=== PATIENT | male | born 1955 | race Caucasian/White ===

== ENCOUNTER 2024-06-07 04:38 | Inpatient (IN) | payer OTHER, SELFPAY ==
[2024-06-07] VITALS (8 sets, daily range): BP systolic 93–155; BP diastolic 52–70; PULSE 73–135; RESP 12–18; TEMP 36.4–37.1; O2SAT 94–99; BMI 22.9; BMI 22.1
--- NOTE | ~2024-06-07 | IR_ITS ---
Fluoroscopic nephrostomy tube replacement History: Metastatic bladder cancer. Dislodged left nephrostomy tube. Procedure: Patient was informed and consented to the procedure. The patient's left back was prepped and draped in routine sterile fashion. A KMP catheter was inserted through the catheter entry site. A contrast injection demonstrated a tract communicating with the renal pelvis. A Glidewire was advanced through the catheter and manipulated into the renal pelvis. The Glidewire was exchanged for a stiff Amplatz wire. [id number], a new 8 Tristanian nephrostomy tube advanced and coiled in the renal pelvis. A subsequent contrast injection demonstrated proper positioning of the tube. The drain was then sutured to the skin with a 3-0 nylon suture. A sterile dressing was applied. There were no immediate complications. Total fluoroscopy time: 2.0 minutes This procedure was performed by Nish Navarrete PA-C, and directly supervised by Dr. Salazar. IR/IR nephrostomy Impression: Successful replacement of left nephrostomy tube. Electronically signed by: Moy Salazar MD 06/11/2024 02:10 PM EDT
--- NOTE | ~2024-06-07 | CT_ITS ---
EXAMINATION: CT ABDOMEN AND PELVIS WITHOUT CONTRAST CLINICAL INFORMATION: Nephrostomy tube pulled out COMPARISON: None available. TECHNIQUE: Multidetector volumetric imaging was performed from the superior aspect of the liver through the pubic symphysis. Sagittal and coronal reformatted images were obtained on the technologist's workstation. This CT examination was performed using dose optimization techniques as appropriate, variously including the following: *Automated exposure control *Adjustment of mA and/or kV according to patient size (this includes techniques or standardized protocols for targeted exams where dose is matched to indication/reason for exam; i.e. extremities or head) *Use of iterative reconstruction technique DLP: 786 mGy-cm FINDINGS: LUNG BASES: Large pericardial effusion. Coronary artery and valvular calcifications. Small bilateral pleural effusions with subjacent atelectasis. No pneumothorax. LIVER, GALLBLADDER, AND BILIARY TREE: The liver is normal in size, shape, and attenuation. No focal hepatic lesion or biliary ductal dilatation is present. The gallbladder is unremarkable with no evidence of radiopaque gallstones, gallbladder wall thickening, or obvious pericholecystic inflammatory changes. PANCREAS: Punctate calcifications involving the splenic body potentially representing sequela of remote pancreatitis. SPLEEN: Potential hypodense focus within the posterior medial aspect of the spleen measuring 2.1 cm, nonspecific. ADRENAL GLANDS: Unremarkable. KIDNEYS AND URETERS: Right sided percutaneous nephrostomy catheter is noted with the pigtail coiled within the right renal lower pole calyx . No right-sided nephrolithiasis or hydronephrosis. Right-sided hydroureter. Moderate left-sided hydroureteronephrosis without obstructing calculus noted. Left-sided 5 mm lower pleural-parenchymal calculus noted. BLADDER: Though the urinary bladder is decompressed there is prominent wall thickening. GASTROINTESTINAL TRACT: Fecal loading throughout the colon. The small and large bowel are unremarkable. The appendix is not definitively visualized. ABDOMINAL WALL: No significant hernia is appreciated. Anasarca. PERITONEUM: Trace ascites noted LYMPH NODES: No enlarged lymph nodes per size criteria. VASCULAR: Abdominal aorta is nonaneurysmal. PELVIC VISCERA: Prostate measures up to 3.2 cm. OSSEOUS STRUCTURES: Multifocal vertebral body and pelvic sclerotic foci are noted suggesting metastatic disease. Multilevel degenerative changes of the thoracolumbar and lumbosacral spine. CT/CT abdomen pelvis wo IV con IMPRESSION: 1. Right sided percutaneous nephrostomy catheter is noted with the pigtail coiled within the right renal lower pole calyx. No right-sided nephrolithiasis or hydronephrosis. Right-sided hydroureter 2. Moderate left-sided hydroureteronephrosis without obstructing calculus noted. Left-sided 5 mm lower pleural-parenchymal calculus noted. 3. Though the urinary bladder is decompressed there is prominent wall thickening. 4. Large pericardial effusion. 5. Small bilateral pleural effusions with subjacent atelectasis. 6. Potential hypodense focus within the posterior medial aspect of the spleen measuring 2.1 cm, nonspecific. 7. Multifocal vertebral body and pelvic sclerotic foci are noted suggesting metastatic disease. Fleischner guidelines were followed. Electronically signed by: Paula Madera MD 06/07/2024 07:40 AM EDT
--- NOTE | 2024-06-07 05:18 | ED.MALEGU ---
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 and brain on hospice care with nephrostomy tube just discharged from [facility] on 06/04/24 patient is only for comfort measures taking the pain medications and has bilateral nephrostomy tube, last night patient was restless the gave him Ativan and accidentally patient has pulled out the left nephrostomy tube which was placed about a month ago , right nephrostomy tube still draining urine patient came here for replacement of nephrostomy tube spoke with patient's obgyn specialist dolores heller who does not want any lab workup just want comfort measures and replacement of nephrostomy tube according to patient's left nephrostomy tube drains well than the right one Related Data Allergies Allergy/AdvReac Type Severity Reaction Status Date / Time No Known Allergies Allergy Verified 06/07/24 04:55 Review of Systems Review of Systems: Yes Unobtainable due to mental status PMFSH Social History Social History Household Members: Spouse Housing: Unknown / Unable to assess Patient Tobacco Use Status: Tobacco use Unknown Physical Exam Vital Signs: Vital Signs: Last Vital Signs Temp 97.9 F 06/08/24 04:00 Pulse 80 06/08/24 04:00 Resp 15 06/08/24 04:00 BP 129/67 06/08/24 04:00 Pulse Ox 97 06/08/24 04:00 O2 Del Method Nasal Cannula 06/08/24 04:00 O2 Flow Rate 2 06/08/24 04:00 BMI result Body Mass Index 22.9 Appearance: Alert. Oriented X1-2. No acute distress. Lethargic falling sleep Eyes: Pallor++ ENT: Pharynx normal. Oral Mucosa moist Neck: Normal inspection. Neck supple. CVS: Normal heart rate and rhythm. Pulses normal. Respiratory: No respiratory distress. Equal air entry bilateral, decreased air entry bilateral Abdomen: Soft and nontender. Bowel sounds are present, no mass palpable, no CVA tenderness right nephrostomy in place with urine drainage+ Skin: Skin warm and dry. Normal skin color. Normal skin turgor. Extremities: + lower extremity edema. No calf tenderness Neuro: Oriented X1-2. Limited lower extremity movements Medications Administered Generic Name Dose Route Start Last Admin Trade Name Freq PRN Reason Stop Dose Admin Methadone HCl 5 mg 06/07/24 21:00 06/08/24 04:45 Methadone Hcl 5 Mg Tablet PO 5 mg Q8H HARLAN Administration Oxycodone HCl 10 mg 06/07/24 10:42 06/08/24 00:00 Oxycodone Hcl Immed Release 5 Mg Tablet PO 10 mg Q3H PRN Administration Pain, Moderate(Pain Scale 4-6) Sodium Chloride 3 ml 06/07/24 16:00 06/07/24 21:10 0.9 % Sodium Chloride Flush 3 Ml Syringe IVFLUSH 3 ml QSHIFT HARLAN Administration Discontinued Medications Generic Name Dose Route Start Last Admin Trade Name Freq PRN Reason Stop Dose Admin Methadone HCl 5 mg 06/07/24 11:00 06/07/24 13:26 Methadone Hcl 5 Mg Tablet PO 5 mg Q8H HARLAN Administration Oxycodone HCl 15 mg 06/07/24 07:45 06/07/24 08:01 Oxycodone Hcl Immed Release 15 Mg Tablet PO 06/07/24 07:46 15 mg ONCE ONE Administration Medical Decision Making Medical Decision Making [facility] Narrative: Patient with bladder cancer with metastasis to bone and brain in the hospice care comes here with dislodged left nephrostomy tube. Discussed with hospital will admit patient to hospitalist service for replacement of left nephrostomy tube by IR and supportive treatment case discussed with patient's does not want any other further testing patient is supposed to on comfort care only Consult Healthcare Provider Management of the patient was discussed with: Hospitalist Independent Interpretation I performed an independent interpretation of an: CT Scan Radiology Impression Discussion of test interpretation with radiology: I have reviewed the radiologist's reading. Radiologist Impression: CT/CT abdomen pelvis wo IV con IMPRESSION: 1. Right sided percutaneous nephrostomy catheter is noted with the pigtail coiled within the right renal lower pole calyx. No right-sided nephrolithiasis or hydronephrosis. Right-sided hydroureter 2. Moderate left-sided hydroureteronephrosis without obstructing calculus noted. Left-sided 5 mm lower pleural-parenchymal calculus noted. 3. Though the urinary bladder is decompressed there is prominent wall thickening. 4. Large pericardial effusion. 5. Small bilateral pleural effusions with subjacent atelectasis. 6. Potential hypodense focus within the posterior medial aspect of the spleen measuring 2.1 cm, nonspecific. 7. Multifocal vertebral body and pelvic sclerotic foci are noted suggesting metastatic disease. Fleischner guidelines were followed. Discharge Plan Discharge Clinical Impression: Nephrostomy tube displaced Patient Disposition: Admitted As Inpatient Interventions: Admission Worksheet (ED) Last Done: 06/07/24 10:03 Discharge Date/Time: 06/07/24 10:39
--- NOTE | 2024-06-07 05:26 | PC.NURSE ---
Pt changed over to hospital attire, rectal temp 96.7, provider spoke to family member, comfort measures only at this time.
--- NOTE | 2024-06-07 05:30 | PC.NURSE ---
pt taken to ct-scan
--- NOTE | 2024-06-07 07:05 | PC.NURSE ---
Pt is alert/oriented. States 4/10 pain to testicles however on exam no outward abrasions or swelling/redness appreciated. Tachy on tele in 130s. Other VS WNL. Dressing to left urostomy site dressing CDI and right nephrostomy draining pink tinged urine. Pt resting comfortably with eyes closed when not spoken to. Awaits CT scan
[2024-06-07] MEDS: oxyCODONE HCl Immed Release 15 MG TABLET PO (08:01)
--- NOTE | 2024-06-07 08:37 | PM.IMHP ---
History of Present Illness Date of Service: 06/07/24 Chief Complaint: Nephrostomy tube dislodged Patient with history of metastatic bladder cancer spreading to bones and brain on hospice care with nephrostomy tube just discharged from [facility] on 06/04/24 patient is only for comfort measures taking the pain medications and has bilateral nephrostomy tube, last night patient was restless the gave him Ativan and accidentally patient has pulled out the left nephrostomy tube which was placed about a month ago , right nephrostomy tube still draining urine patient came here for replacement of nephrostomy tube spoke with patient's vest presser dolores heller who does not want any lab workup just want comfort measures and replacement of nephrostomy tube according to patient's left nephrostomy tube drains well than the right one Review of Systems Review of Systems: Admits to diffuse bony pain Denies chest pain Denies shortness of breath Denies nausea vomiting diarrhea Denies fever chills PMFSH Social History Smoked in Last 30 Days: No Use of substances other than those prescribed or required for medical reasons: No Advance Directives: No Do you have a plan to hurt others: No Plan Meds Allergies Allergy/AdvReac Type Severity Reaction Status Date / Time No Known Allergies Allergy Verified 06/07/24 04:55 Physical Exam Vital Signs and Narrative: Vital Signs: Last Vital Signs Temp 97.6 F 06/07/24 04:52 Pulse 130 H 06/07/24 07:05 Resp 18 06/07/24 07:05 BP 115/64 06/07/24 07:05 Pulse Ox 95 06/07/24 07:05 O2 Del Method Nasal Cannula 06/07/24 07:05 O2 Flow Rate 3 06/07/24 07:05 BMI result Body Mass Index 22.9 Const: Other: Awake alert uncomfortable appearing on stretcher Resp: Other: Clear to auscultation bilaterally no rales rhonchi or wheezes Cardio: Other: No S4; positive S1-S2; no S3 murmurs rubs or gallops GI: Other: Soft nontender nondistended normoactive bowel sounds Extrem: Other: No edema bilaterally Results Imaging Radiologist's Impressions: Impressions Abdomen/Pelvis CT 06/07/24 05:09 IMPRESSION: 1. Right sided percutaneous nephrostomy catheter is noted with the pigtail coiled within the right renal lower pole calyx. No right-sided nephrolithiasis or hydronephrosis. Right-sided hydroureter 2. Moderate left-sided hydroureteronephrosis without obstructing calculus noted. Left-sided 5 mm lower pleural-parenchymal calculus noted. 3. Though the urinary bladder is decompressed there is prominent wall thickening. 4. Large pericardial effusion. 5. Small bilateral pleural effusions with subjacent atelectasis. 6. Potential hypodense focus within the posterior medial aspect of the spleen measuring 2.1 cm, nonspecific. 7. Multifocal vertebral body and pelvic sclerotic foci are noted suggesting metastatic disease. Fleischner guidelines were followed. Electronically signed by: Paula Madera MD 06/07/2024 07:40 AM EDT RP Assessment and Plan (1) Bladder cancer metastasized to bone: Status: Acute Plan 69-year-old male with history of widely metastatic bladder cancer presents to ER after nephrostomy tube dislodged. Presented with who stated nephrostomy tube was placed at [facility] and the patient was just discharged home yesterday. Given Ativan and subsequently slightly confused and dislodged left nephrostomy tube. wishes tube to be replaced. We will admit patient arbs and scheduled with Interventional Radiology in a.m.. We will continue [employer] status an oral analgesia Quality Stroke Does the patient have a stroke diagnosis?: No VTE Prior VTE?: No VTE Risk Level:: Medical - moderate - high VTE Device Contraindication: Patient Refused VTE Drug Contraindication: Patient Refused
--- NOTE | 2024-06-07 10:15 | PHA.MEDREC ---
Pharmacy Consult ? Medication Reconciliation Pharmacy has not completed the medication reconciliation. Per Dr. 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
--- NOTE | 2024-06-07 11:22 | PC.NURSE ---
Pt admitted to room 362 from the ER unaccompanied by a family member . Pt is confused to time and date and series of events , admission info limited , obtained most info from chart
[2024-06-07] MEDS: methADONE HCl 5 MG TABLET PO ×2 (13:26→21:10)
[2024-06-07] MEDS: oxyCODONE HCl Immed Release 5 MG TABLET 10 MG PO ×2 (13:26→17:26)
--- NOTE | 2024-06-07 15:19 | PC.NURSE ---
Pt's daughter Maribel James can be reached at [phone] in case of change in pt status at anytime
[2024-06-07] MEDS: 0.9 % Sodium Chloride Flush 3 ML SYRINGE IVFLUSH ×2 (15:53→21:10)
[2024-06-08 04:00] VITALS: BP 129/67; PULSE 80; RESP 15; TEMP 36.6; O2SAT 97
[2024-06-08] MEDS: methADONE HCl 5 MG TABLET PO ×3 (04:45→20:38)
--- NOTE | 2024-06-08 04:59 | PC.NURSE ---
lots of drainage coming out from left flank opening where nephrostomy tube was. dressing changed x2. output from right nephrostomy =100. Patient is comfortable, oriented, appropriate.
[2024-06-08 07:44] VITALS: BP 122/60; PULSE 83; RESP 17; TEMP 36.8; O2SAT 94
[2024-06-08] MEDS: 0.9 % Sodium Chloride Flush 3 ML SYRINGE IVFLUSH ×3 (08:17→20:39)
--- NOTE | 2024-06-08 09:55 | PM.PROC ---
Brief Operative Note Date of procedure: 06/08/24 Pre-op diagnosis: Dislodged left nephrostomy tube Post-op diagnosis: same Procedure: 8 fr left nephrostomy tube replaced under [place]. No immediate complications. Anesthesia: local
[2024-06-08] MEDS: oxyCODONE HCl Immed Release 5 MG TABLET 10 MG PO ×2 (11:58)
--- NOTE | 2024-06-08 12:03 | MHC.CM.PN ---
MELISSA DELIVERED PT LIVES WITH SPOUSE. ACTIVE WITH [facility]. CM SPOKE WITH HOSPICE AND VIA TELEPHONE. PLAN TO RESUME SERVICES 06/09 AND BLS TRANSPORT HAS BEEN BOOKED FOR 1: 30 PM 06/09 [facility]IA [place]. MD AWARE AND IN AGREEMENT WITH PLAN. COPY OF MOLST/HCP REQUESTED , HOSPICE WILL FAX.
[2024-06-08 15:18] VITALS: BP 100/53; PULSE 78; RESP 17; TEMP 36.8; O2SAT 92
[2024-06-08] MEDS: Sodium Chloride 0.65 % Nasal 44 ML SPRBTL 1 SPRAY NOSTRIL-B (18:32)
[2024-06-08 19:31] VITALS: BP 109/52; PULSE 80; RESP 20; TEMP 36.4; O2SAT 94
[2024-06-09 03:44] VITALS: BP 135/63; PULSE 80; RESP 20; TEMP 36.6; O2SAT 94
[2024-06-09] MEDS: methADONE HCl 5 MG TABLET PO ×2 (04:59→12:47)
[2024-06-09 08:00] VITALS: RESP 16
[2024-06-09] MEDS: 0.9 % Sodium Chloride Flush 3 ML SYRINGE IVFLUSH (08:05)
[2024-06-09] MEDS: oxyCODONE HCl Immed Release 5 MG TABLET 10 MG PO (08:09)
--- NOTE | 2024-06-09 10:48 | PM.DS ---
DS: Providers Provider Date of Service: 06/09/24 Date of admission: 06/08/24 09:25 Date of discharge: 06/09/24 Primary care physician: Krishan Physician DS: Diagnosis Discharge Diagnosis (1) Bladder cancer metastasized to bone: Status: Acute DS: Summary Hospital Course Hospital Course: Patient with history of metastatic bladder cancer spreading to bones and brain on hospice care with nephrostomy tube just discharged from [facility] on 06/04/24 patient is only for comfort measures taking the pain medications and has bilateral nephrostomy tube, last night patient was restless the gave him Ativan and accidentally patient has pulled out the left nephrostomy tube which was placed about a month ago , right nephrostomy tube still draining urine patient came here for replacement of nephrostomy tube spoke with patient's cheo heller who does not want any lab workup just want comfort measures and replacement of nephrostomy tube according to patient's left nephrostomy tube drains well than the right one. Hospital Course Patient admitted overnight to general medical floor and nephrostomy tube replaced by IR. Tolerated the procedure well. Discussed with and hospice. .. We will discharge to home to resume hospice care as previous. Time Attestation Discharge Coordination Time (in mins): 35 Quality: Safe Use of Opioids Does Pt have an Active Cancer Diagnosis on the Problem List?: No Quality: Stroke Does the patient have a stroke diagnosis?: No Physical Exam Vital Signs: Vital Signs: Last Vital Signs Temp 97.8 F 06/09/24 03:44 Pulse 80 06/09/24 03:44 Resp 16 06/09/24 08:00 BP 135/63 06/09/24 03:44 Pulse Ox 94 06/09/24 03:44 O2 Del Method Nasal Cannula 06/09/24 03:44 O2 Flow Rate 3 06/09/24 03:44 BMI result Body Mass Index 22.1 Const: Other: Awake alert uncomfortable appearing on stretcher Resp: Other: Clear to auscultation bilaterally no rales rhonchi or wheezes Cardio: Other: No S4; positive S1-S2; no S3 murmurs rubs or gallops GI: Other: Soft nontender nondistended normoactive bowel sounds Extrem: Other: No edema bilaterally Discharge Plan Discharge Anticipated Discharge Date/Time: 06/09/24 10:45 Patient Disposition: Hospice - Home Discharge Diagnosis: Metastatic bladder cancer Referrals: Physician,None [Primary Care Provider] - 1 Week Discharge Medications: New methadone 5 mg Tablet 5 mg PO Q8H Qty: 90 0RF Rx Instructions: Partial Fill upon patient request. Discharge Orders: Discharge Order (Routine); Ordered 06/09/24 Ordered By: Osmani Jacobs Diet: Advance to usual diet Activity on Discharge: As tolerated Stand Alone Forms: Patient Portal Discharge page Print Language: Polish Care Plan Goals: Resume all therapies as hospice indicates Health Concerns: As above Plan of Treatment: As per hospice Assessment: See discharge summary
--- NOTE | 2024-06-09 11:35 | MHC.CM.PN ---
DP: PT HAS BEEN CLEARED FOR DC HOME WITH RESUMPTION OF HOSPICE CARE [facility]IA [facility]. BLS TRANSPORT BOOKED FOR 1:30 PM VIA [place]. MD//HOSPICE ALL IN AGREEMENT OF PLAN. RN AWARE.
== END 2024-06-09 13:58 | disposition hospice, home (50) | DRG 699 ==
LOC: HO.ED 07:05 → HO.EDOVER 08:58 → HO.S3 09:54
PROVIDERS: Student in an Organized Health Care Education/Training Program; Admitting Provider Hospitalist; Emergency Provider Internal Medicine; PCP Internal Medicine; Visit Provider Hospitalist
PROC: 0T25X0Z Change Drainage Device in Kidney, External Approach (ICD-10-PCS; principal; 2024-06-08 08:30)
DX: T83.022A Displacement of nephrostomy catheter, initial encounter (principal); C79.31 Secondary malignant neoplasm of brain; C79.51 Secondary malignant neoplasm of bone; Z51.5 Encounter for palliative care
CPT/HCPCS: 50432; 74176; 99221; 99285; C1729; C1769; C1887; C1892; C1894

== ENCOUNTER → 2024-06-07 08:33 | Outpatient (BNV) | payer MEDICARE, SELFPAY | PROVIDERS: Admitting Provider Hospitalist; Emergency Provider Internal Medicine; Visit Provider Hospitalist | DX: C67.8 Malignant neoplasm of overlapping sites of bladder (principal); C79.51 Secondary malignant neoplasm of bone | CPT/HCPCS: 99222; 99239 ==

== ENCOUNTER → 2024-06-08 09:25 | Outpatient (BNV) | payer MEDICARE, SELFPAY | PROVIDERS: Admitting Provider Hospitalist; Emergency Provider Internal Medicine; Visit Provider Physician Assistant Surgical | DX: C67.9 Malignant neoplasm of bladder, unspecified (principal); C79.51 Secondary malignant neoplasm of bone | CPT/HCPCS: 50432 ==

== ENCOUNTER 2024-06-23 13:54 | Inpatient (IN) | payer OTHER, SELFPAY ==
[2024-06-23 14:05] VITALS: BP 103/46; PULSE 82; O2SAT 86
[2024-06-23 14:20] VITALS: BP 110/50; PULSE 84; RESP 22; TEMP 36.4; O2SAT 92; BMI 20.3
--- NOTE | 2024-06-23 14:39 | ED_ITS ---
HPI - General Adult General Chief complaint: General Medical Stated complaint: sob Time Seen by Provider: 06/23/24 14:14 Source: patient Mode of arrival: EMS Limitations: no limitations History of Present Illness HPI narrative: This is a 69-year-old man with a past medical history of metastatic bladder cancer (metastatic to bone and brain) on hospice care/comfort measures only status post bilateral nephrostomy tube who presents via EMS with right nephrostomy tube dislodgement. Patient states that he was feeling short breath earlier today, but states that this has since resolved. Patient states he is unsure how to is back fell out. Patient states he has no pain or nausea. Patient reports feeling well at this time. Related Data Previous Rx's ?Medication ?Instructions ?Recorded methadone 5 mg tablet 5 mg PO Q8H #90 tabs 06/09/24 Allergies Allergy/AdvReac Type Severity Reaction Status Date / Time No Known Allergies Allergy Verified 06/23/24 14:21 Review of Systems Review of Systems: ROS as per HPI [facility] Past Medical History Medical History (Updated 06/23/24 @ 15:38 by Isidro Pulido MD) Bladder cancer metastasized to bone Social History Social History Household Members: Spouse Housing: Unknown / Unable to assess Patient Tobacco Use Status: Tobacco use Unknown Advance Directives: No Advance Directives Information Provided: Yes Do you have a plan to hurt others: No Plan service: No Physical Exam ED Vital Signs: Vital Signs - 24 hr 06/23/24 14:20 Temperature 97.6 F Pulse Rate 84 Respiratory Rate 22 H Blood Pressure 110/50 L Pulse Oximetry 92 Oxygen Delivery Method Non-Rebreather Mask BMI result Body Mass Index 20.3 Gen: NAD, AOx3 HEENT: NCAT, EOMI, normal conjunctiva CV: RRR Pulm: CTAB, no increased work of breathing GI: Soft, NTND, no rebound, guarding or rigidity, left nephrostomy tube intact draining yellow urine, no nephrostomy tube on the right Neuro: Grossly non focal Medical Decision Making Medical Decision Making MDM Narrative: I discussed with the patient's significant other, Renee, who confirms the patient's goals of care that he is a DNR/DNI and comfort measures only on hospice at this time. She states that the oxygen concentrator this morning and ran out and he was gasping for air. She states that he is always on 5 L of oxygen. She states that she was able to transition him to a backup oxygen tank and he has difficulty breathing resolved. She states that he has been sent to the emergency room today due to dislodgement of the right nephrostomy tube. She states she is unsure if pelvis happened as she was going to change the bags and noted that the left [address], but then noted that the right 1 was dislodged. She states he dislodged the other nephrostomy tube 2-3 weeks ago. She confirms that there is no need for any blood work or imaging studies and would like Giorgi to continue to be kept comfortable. I considered blood work, urinalysis and CT imaging, but given patient's goals of care there is no indication for these diagnostic studies. I discussed the patient's case and management with intervention Radiology, Nish Navarrete, who states that they will replace the tube tomorrow June 24, 2024. I discussed the patient's case and management with admitting hospitalist, Dr. Fang, and the patient is admitted in stable condition for further workup and management. Admission/Observation Consideration of admission/observation: Escalation of care including admission/observation considered Consult Healthcare Provider Management of the patient was discussed with: Hospitalist and Shactor Discharge Plan Discharge Clinical Impression: Complication of nephrostomy Patient Disposition: Admitted As Inpatient Prescriptions: No Action methadone 5 mg Tablet 5 mg PO Q8H Qty: 90 0RF Rx Instructions: Partial Fill upon patient request. Print Language: Citizen Of [place]
--- NOTE | 2024-06-23 15:05 | PC.NURSE ---
patient baseline oxygen 5L, EMS placed on non-rebreather d/t hypoxia 86% on 5L. placed on oxymask 5L 90%. left nephrostomy bag remains in place, right nephrostomy site w/ dark drainage.
--- NOTE | 2024-06-23 15:34 | PC.NURSE ---
Addendum entered by Angie Jacobs 06/23/24 15:35: patient denies shortness of breath, not endorsing any distress at this time. only complaint of buttocks pain. Original Note: increased oxygen flow rate w/ oxymask. patient at 11L oxymask at 89%.
[2024-06-23 15:35] VITALS: BP 104/48; PULSE 84; RESP 24; O2SAT 89
--- NOTE | 2024-06-23 17:03 | PHA.MEDREC ---
Addendum entered by Etta Garcia RPh 06/23/24 17:30: Med rec was reviewed by [facility]. Original Note: Pharmacy Consult ? Medication Reconciliation Pharmacy has completed the medication reconciliation. Spoke to patient to confirm medication, however he didn't know the names of his medication. Called and spoke to patients daughter to confirm med list. Daughter had to call her mom and check to see what patient was on. Daughter called back and confirmed that patient is now on hospice and only takes Levothyroxine 200 mcg , Lorazepam 0.5 mg, Oxycodone 10 mg. daughter states that hospice just changed patient from Methadone 5 mg to Morphine 5 mg Q1H prf pain or sob. last dose of any medication was today 06-23-24 a@9:00am
--- NOTE | 2024-06-23 17:30 | P.HPHOSP_ITS ---
History of Present Illness Date of Service: 06/23/24 Chief Complaint: Right nephrostomy dislodged on hospice 69-year-old gentleman with history of metastatic bladder cancer with metastasis to bones and brain on hospice care with bilateral nephrostomy tube, patient is on hospice/comfort measures only , was sent to [facility] via EMS since right nephrostomy tube dislodged, patient unsure how it happened, he denies pain, he did have shortness of breath earlier today but at this time denies chest pain, no shortness of breath, currently on 10 L of oxygen finger oximetry 90%, left nephrostomy tube is draining clear urine, call patient's to obtain more information left message, as per ER physician's conversation with patient's Loyd and she confirmed the goal of care as DNR DNI and comfort measures, as per they oxygen concentrator this morning ran out and he was gasping for air, after placing oxygen his shortness of breath resolved, at baseline patient on 5 L of oxygen,, declined further workup including no blood draws or imaging studies, ED provider discussed with interventional r adiologist Nish Navarrete who stated that they will replace the tube on 06/24/2024, patient will be admitted to medical floor on home medications. Review of Systems Review of Systems: Unable to obtain due to frailty and difficulty providing history. [facility] Medical History Bladder cancer metastasized to bone Social History Household Members: Spouse Housing: Unknown / Unable to assess Patient Tobacco Use Status: Tobacco use Unknown Advance Directives: No Advance Directives Information Provided: Yes Do you have a plan to hurt others: No Plan service: No Meds Allergies Allergy/AdvReac Type Severity Reaction Status Date / Time No Known Allergies Allergy Verified 06/23/24 14:21 Active Medications: Current Medications Acetaminophen (Acetaminophen 325 Mg Tablet) 650 mg PO Q6H PRN PRN Reason: Pain, Mild (Pain Scale 1-3), fever or headache Calcium Carbonate (Calcium Carbonate 750 Mg Tab.Chew) 750 mg PO Q4H PRN PRN Reason: Heartburn Magnesium Hydroxide (Milk Of Magnesia 30 Ml Oral.Susp) 30 ml PO DAILY PRN PRN Reason: Constipation Melatonin (Melatonin 3 Mg Tablet) 6 mg PO BEDTIME PRN PRN Reason: Insomnia Ondansetron HCl (Ondansetron Hcl 4 Mg/2 Ml Vial) 4 mg IVPUSH Q8H PRN PRN Reason: Nausea and Vomiting Sodium Chloride (0.9 % Sodium Chloride Flush 3 Ml Syringe) 3 ml IVFLUSH QSHIFT [facility] Home Medications ?Medication ?Instructions ?Recorded ?Confirmed ?Last Taken ?Type levothyroxine 200 mcg tablet 200 mcg PO DAILY@0600 06/23/24 06/23/24 06/23/24 09:00 History lorazepam 0.5 mg tablet 0.5 mg PO Q4H PRN anxiety 06/23/24 06/23/24 06/23/24 09:00 History morphine concentrate 100 mg/5 mL 5 mg PO Q1H PRN pain or sob 06/23/24 06/23/24 06/23/24 09:00 History (20 mg/mL) oral solution oxycodone 10 mg tablet 10 mg PO Q3H PRN pain 06/23/24 06/23/24 06/23/24 09:00 History Physical Exam Vital Signs and Narrative: Vital Signs: Last Vital Signs Temp 97.6 F 06/23/24 14:20 Pulse 84 06/23/24 15:35 Resp 24 H 06/23/24 15:35 BP 104/48 L 06/23/24 15:35 Pulse Ox 89 L 06/23/24 15:35 O2 Del Method Oxymask 06/23/24 15:35 O2 Flow Rate 11 06/23/24 15:35 Oxygen Flow Rate 10 06/23/24 14:20 BMI result Body Mass Index 20.3 Const: Other: General awake alert in no acute distress Neck haroldo JVD. CVS regular rate rhythm, Respiratory intermittent deep breathing, decreased air entry bilateral Gastrointestinal abdomen soft, nontender, bowel sounds audible, no no guarding , no rigidity. Extremities mild lower extremity edema. Neuro moving all 4 extremity speech clear. Left nephrostomy tube bag with clear urine Assessment and Plan (1) Complication of nephrostomy: Status: Acute Plan 69-year-old gentleman with bladder cancer with metastasis to bone and brain under hospice care, presented with dislodged right nephrostomy tube, will be admitted to hospitalist service for replacement of right nephrostomy tube by IR at a.m., will continue supportive care on home medications. Dislodged right nephrostomy tube: IR consult for replacement of tube Metastatic bladder cancer to bones and brain continue home medications for comfort. Called and left message to discuss treatment plan. Quality Stroke Does the patient have a stroke diagnosis?: No VTE Prior VTE?: No VTE Risk Level:: Medical - moderate - high VTE Device Contraindication: Treatment Not Indicated VTE Drug Contraindication: N/A - Med Ordered
[2024-06-23] MEDS: LORazepam 0.5 MG TABLET PO (17:57)
[2024-06-23] MEDS: Morphine Sulfate Oral Sol 10 MG/5 ML SOLUTION 5 MG PO ×2 (17:57→19:12)
--- NOTE | 2024-06-23 18:01 | PC.NURSE ---
Pt medicated per MAR for anxiety, pain all over and SOB.
--- NOTE | 2024-06-23 18:52 | PC.NURSE ---
patient placed into hospital bed for comfort, has pain all throughout his body. spoke with on phone who states she will be visiting in the morning
--- NOTE | 2024-06-23 19:30 | PC.NURSE ---
MD aware patient does not have IV access and is ok with this at this time. IM medication ordered at this time and patient can also tolerate PO medication if needed.
--- NOTE | 2024-06-23 19:42 | PC.NURSE ---
Reached out to Dr. Andrews regarding patient pain control. Despite morphine 5mg, patient still rating pain 10/10.
[2024-06-23] MEDS: HYDROmorphone HCl 0.5 MG/0.5 ML SYRINGE IM ×2 (20:24→23:31)
--- NOTE | 2024-06-23 21:50 | PC.NURSE ---
assisted patient with calling . Gave update. Will be here in the AM
--- NOTE | 2024-06-23 23:31 | MHC.EDTECH ---
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
[2024-06-23 23:33] VITALS: BP 97/55; PULSE 83; O2SAT 88
[2024-06-24] MEDS: LORazepam 0.5 MG TABLET PO ×7 (00:48→20:17)
[2024-06-24] MEDS: HYDROmorphone HCl 0.5 MG/0.5 ML SYRINGE IM (02:28)
[2024-06-24 02:30] VITALS: BP 113/53; PULSE 89; O2SAT 84
[2024-06-24 05:00] VITALS: BMI 19.9
[2024-06-24] MEDS: Levothyroxine Sodium 200 MCG TABLET PO (05:40)
[2024-06-24 07:48] VITALS: O2SAT 82
[2024-06-24] MEDS: Morphine Sulfate Oral Sol 10 MG/5 ML SOLUTION 5 MG PO ×7 (09:45→20:15)
[2024-06-24 12:00] VITALS: PULSE 60; RESP 12; O2SAT 81
--- NOTE | 2024-06-24 13:17 | HO.PM.IMPN ---
Subjective Subjective Date of Service: 06/24/24 Interval History: Being followed for dislodged right nephrostomy tube. This a.m. patient noted to be in respiratory distress, unable to place IV line despite multiple attempts, patient complaining of generalized pain /back pain. Spoke with Renee Angel due to patient clinical status she declined the procedure to replace nephrostomy tube. Review of Systems Unable to obtain detailed review of system due to distress. Physical Exam Vital Signs: Vital Signs: Last Vital Signs Temp 97.6 F 06/23/24 14:20 Pulse 60 06/24/24 12:00 Resp 12 06/24/24 12:00 BP 113/53 L 06/24/24 02:30 Pulse Ox 81 L 06/24/24 12:00 O2 Del Method Nasal Cannula 06/24/24 12:00 O2 Flow Rate 15 06/24/24 12:00 Oxygen Flow Rate 10 06/23/24 14:20 BMI result Body Mass Index 19.9 Const: Other: General awake alert in respiratory distress. Neck no JVD. CVS regular rate rhythm, Respiratory lungs tachypneic, respiratory distress Gastrointestinal abdomen soft, bowel sounds audible Extremities no edema. Neuro moving all 4 extremity ,speech clear. Objective Data Active Medications Acetaminophen (Acetaminophen 325 Mg Tablet) 650 mg PO Q6H PRN PRN Reason: Pain, Mild (Pain Scale 1-3), fever or headache Calcium Carbonate (Calcium Carbonate 750 Mg Tab.Chew) 750 mg PO Q4H PRN PRN Reason: Heartburn Levothyroxine Sodium (Levothyroxine Sodium 200 Mcg Tablet) 200 mcg PO DAILY@0600 [facility] Last Admin: 06/24/24 05:40 Dose: 200 mcg Documented By: GRADY Lorazepam (Lorazepam 0.5 Mg Tablet) 0.5 mg PO Q2H PRN PRN Reason: anxiety Last Admin: 06/24/24 12:19 Dose: 0.5 mg Documented By: LATOYA Magnesium Hydroxide (Milk Of Magnesia 30 Ml Oral.Susp) 30 ml PO DAILY PRN PRN Reason: Constipation Melatonin (Melatonin 3 Mg Tablet) 6 mg PO BEDTIME PRN PRN Reason: Insomnia Morphine Sulfate (Morphine Sulfate Oral Serena 10 Mg/5 Ml Solution) 5 mg PO Q1H PRN PRN Reason: pain or sob Last Admin: 06/24/24 11:58 Dose: 5 mg Documented By: LATOYA Ondansetron HCl (Ondansetron Odt 4 Mg Tab.Rapdis) 4 mg TRANSLINGU Q6H PRN PRN Reason: Nausea and Vomiting Sodium Chloride (0.9 % Sodium Chloride Flush 3 Ml Syringe) 3 ml IVFLUSH QSHIFT [facility] Last Admin: 06/24/24 09:06 Dose: Not Given Documented By: LATOYA Non-Admin Reason: No Access Comments: No IV access, MD aware Assessment and Plan (1) Complication of nephrostomy: Status: Acute (2) Respiratory distress: Status: Acute Plan 69-year-old gentleman with bladder cancer with metastasis to bone and brain under hospice care, presented with dislodged right nephrostomy tube, will be admitted to hospitalist service for replacement of right nephrostomy tube by IR at a.m., will continue supportive care on home medications. Dislodged right nephrostomy tube: Initially planned to have IR guided replacement of tube but due to patient's clinical condition decided to cancel the procedure, since patient unstable due to hypoxia and pain. Will cancel procedure. Recently admitted to [facility] June 09 for replacement of left nephrostomy tube. Metastatic bladder cancer to bones and brain. Under [employer]/hospice care at home Persistent back and generalized pain Will place on scheduled morphine 5 mg q.4 hours and Q1h as needed Continue Ativan 0.5mg q4H scheduled and 0.5 mg q.2 hours as needed Diet as tolerated Respiratory distress with acute on chronic Hypoxia. Recent CT abdomen and pelvis showed large pericardial effusion, small bilateral pleural effusion with subjacent atelectasis Continue oxygen support keep finger oximetry greater than 90 DVT prophylaxis patient [employer] In my clinical judgment patient requires inpatient hospitalization for management of pain as well as respiratory distress requiring 10-15 L of oxygen and close monitoring of pain. Quality Stroke Does the patient have a stroke diagnosis?: No VTE Prior VTE?: No VTE Risk Level:: Medical - moderate - high VTE Device Contraindication: Treatment Not Indicated VTE Drug Contraindication: N/A - Med Ordered
--- NOTE | 2024-06-24 15:37 | MHC.CM.PN ---
IMM 06/24. Pt is from home, lives with his and is active with [facility]. Pt came in from home due to nephrostomy tube dislodgment as he pulled it out due to extreme restlessness. [facility] RN present and has evaluated pt and determined he is eligible for [facility] hospice and they can admit him today. This CM met with pt and his family at bedside, and they would like him to be admitted onto [facility] hospice services. Hospitalist aware. Per hospitalist, they will need official written recommendations from hospice. Hospice was notified. CM investments manager aware.
[2024-06-24 15:38] VITALS: PULSE 86; RESP 16; O2SAT 67
[2024-06-24 20:22] VITALS: RESP 16
[2024-06-25] VITALS (9 sets, daily range): RESP 10–20
[2024-06-25] MEDS: Morphine Sulfate Oral Sol 10 MG/5 ML SOLUTION 5 MG PO ×6 (00:13→19:49)
--- NOTE | 2024-06-25 06:15 | PC.NURSE ---
Patient monitored frequently thru out this shift, medicated as per Oct, able to tolerate the liquid morphine via a syringe in small drops slowly without difficulty and with good effect. Patient took Po Ativan times one and then not given at 0000 and 0400 as felt not able to swallow safely. 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 Left nephrostomy tube output of 125ml angela urine, bilat arms with old scattered bruises, 2+ edema to ankles and feet, elevated to pillows. Dressing at previous right nephrostomy tube site D/I, left also. Pillows and cushion used to offset weight, skin care, and close monitoring maintained.
--- NOTE | 2024-06-25 11:13 | PC.NURSE ---
Sister visiting ,dr. Parisi notified,speaking with sister
--- NOTE | 2024-06-25 11:18 | HO.PM.IMPN ---
Subjective Subjective Date of Service: 06/25/24 Interval History: appears comfortable, on [employer] status Review of Systems Review of Systems: Yes Unobtainable due to mental status Physical Exam Vital Signs: Vital Signs: Last Vital Signs Temp 97.6 F 06/23/24 14:20 Pulse 86 06/24/24 15:38 Resp 16 06/25/24 07:25 BP 113/53 L 06/24/24 02:30 Pulse Ox 67 L 06/24/24 15:38 O2 Del Method Nasal Cannula 06/24/24 20:22 O2 Flow Rate 10 06/24/24 20:22 Oxygen Flow Rate 10 06/23/24 14:20 BMI result Body Mass Index 19.9 Gen: in no acute distress HEENT: sclera anicteric, moist mucus membranes Neck: supple Lungs: clear to auscultation bilaterally Heart: regular rate and rhythm, no murmurs Abd: soft Ext: no edema Skin: warm Neuro: somnolent Objective Data Active Medications Acetaminophen (Acetaminophen 325 Mg Tablet) 650 mg PO Q6H PRN PRN Reason: Pain, Mild (Pain Scale 1-3), fever or headache Calcium Carbonate (Calcium Carbonate 750 Mg Tab.Chew) 750 mg PO Q4H PRN PRN Reason: Heartburn Levothyroxine Sodium (Levothyroxine Sodium 200 Mcg Tablet) 200 mcg PO DAILY@0600 [facility] Last Admin: 06/25/24 05:31 Dose: Not Given Documented By: GRADY Non-Admin Reason: unable to swallow safely Lorazepam (Lorazepam 0.5 Mg Tablet) 0.5 mg PO Q2H PRN PRN Reason: anxiety Last Admin: 06/24/24 16:34 Dose: 0.5 mg Documented By: CHARMAINE Lorazepam (Lorazepam 0.5 Mg Tablet) 0.5 mg PO Q4H [facility] Last Admin: 06/25/24 07:50 Dose: Not Given Documented By: AZRA Non-Admin Reason: Patient Asleep Magnesium Hydroxide (Milk Of Magnesia 30 Ml Oral.Susp) 30 ml PO DAILY PRN PRN Reason: Constipation Melatonin (Melatonin 3 Mg Tablet) 6 mg PO BEDTIME PRN PRN Reason: Insomnia Morphine Sulfate (Morphine Sulfate Oral Serena 10 Mg/5 Ml Solution) 5 mg PO Q1H PRN PRN Reason: pain or sob Last Admin: 06/24/24 15:24 Dose: 5 mg Documented By: GEMMA Morphine Sulfate (Morphine Sulfate Oral Serena 10 Mg/5 Ml Solution) 5 mg PO Q4H [facility] Last Admin: 06/25/24 07:30 Dose: 5 mg Documented By: AZRA Ondansetron HCl (Ondansetron Odt 4 Mg Tab.Rapdis) 4 mg TRANSLINGU Q6H PRN PRN Reason: Nausea and Vomiting Sodium Chloride (0.9 % Sodium Chloride Flush 3 Ml Syringe) 3 ml IVFLUSH QSHIFT [facility] Last Admin: 06/25/24 07:22 Dose: Not Given Documented By: AZRA Non-Admin Reason: No Access Assessment and Plan (1) Complication of nephrostomy: Status: Acute (2) Respiratory distress: Status: Acute Plan d3 for 69yo M with bladder CA metastatic to bone + brain on hospice care, presented with dislodged R nephrostomy tube; tube replacement canceled and pt admitted for [facility] hospice metastatic bladder CA - scheduled/prn morphine solution, scheduled/prn lorazepam - pt's siter updated at bedside acute/chronic hypoxic resp failure with large pericardial effusion, small bilateral pleural effusions - supplemental O2 on 10Lpm In my clinical judgment, the patient requires continued inpatient hospitalization for the following reasons: hospice care, hypoxia Total time managing care of this patient today: 35 minutes. Quality Stroke Does the patient have a stroke diagnosis?: No VTE Prior VTE?: No VTE Risk Level:: Medical - moderate - high VTE Device Contraindication: Treatment Not Indicated VTE Drug Contraindication: N/A - Med Ordered
[2024-06-25] MEDS: LORazepam 0.5 MG TABLET PO ×2 (13:21→19:53)
[2024-06-26] MEDS: Morphine Sulfate Oral Sol 10 MG/5 ML SOLUTION 5 MG PO ×5 (00:05→13:49)
[2024-06-26] MEDS: LORazepam 0.5 MG TABLET PO ×4 (00:07→12:07)
[2024-06-26 04:00] VITALS: PULSE 68; RESP 16
[2024-06-26] MEDS: Levothyroxine Sodium 200 MCG TABLET PO (06:00)
--- NOTE | 2024-06-26 06:42 | PC.NURSE ---
Patient monitored frequently, HOB up, repositioned, skin care, mouth care, and all scheduled medications as ordered. Medications given in liquid form, slowly, and tolerated well. Oxygen at 10 liters via [place] cannula, no acute resp distress. Left nephrostomy tube output 150ml yellow urine. lung laguna dim thru out, RR maintained at 16. periods of sob noted, endoscopy technician edema at feet and ankles. Continue to monitor.
[2024-06-26 07:45] VITALS: RESP 18
--- NOTE | 2024-06-26 10:35 | P.PNIM_ITS ---
Subjective Subjective Date of Service: 06/26/24 Interval History: appears comfortable Review of Systems Review of Systems: Yes Unobtainable due to mental status Physical Exam Vital Signs: Vital Signs: Last Vital Signs Temp 97.6 F 06/23/24 14:20 Pulse 68 06/26/24 04:00 Resp 18 06/26/24 07:45 BP 113/53 L 06/24/24 02:30 Pulse Ox 67 L 06/24/24 15:38 O2 Del Method Nasal Cannula 06/26/24 04:00 O2 Flow Rate 06/26/24 04:00 Oxygen Flow Rate 10 06/23/24 14:20 BMI result Body Mass Index 19.9 Gen: in no acute distress, chronically ill-appearing HEENT: sclera anicteric, moist mucus membranes Neck: supple Lungs: clear to auscultation bilaterally Heart: regular rate and rhythm, no murmurs Abd: soft Ext: no edema Skin: warm Neuro: somnolent Objective Data Active Medications Acetaminophen (Acetaminophen 325 Mg Tablet) 650 mg PO Q6H PRN PRN Reason: Pain, Mild (Pain Scale 1-3), fever or headache Calcium Carbonate (Calcium Carbonate 750 Mg Tab.Chew) 750 mg PO Q4H PRN PRN Reason: Heartburn Levothyroxine Sodium (Levothyroxine Sodium 200 Mcg Tablet) 200 mcg PO DAILY@0600 [facility] Last Admin: 06/26/24 06:00 Dose: 200 mcg Documented By: GRADY Lorazepam (Lorazepam 0.5 Mg Tablet) 0.5 mg PO Q2H PRN PRN Reason: anxiety Last Admin: 06/25/24 13:21 Dose: 0.5 mg Documented By: KAVON Lorazepam (Lorazepam 0.5 Mg Tablet) 0.5 mg PO Q4H [facility] Last Admin: 06/26/24 07:23 Dose: 0.5 mg Documented By: AZRA Magnesium Hydroxide (Milk Of Magnesia 30 Ml Oral.Susp) 30 ml PO DAILY PRN PRN Reason: Constipation Melatonin (Melatonin 3 Mg Tablet) 6 mg PO BEDTIME PRN PRN Reason: Insomnia Morphine Sulfate (Morphine Sulfate Oral Serena 10 Mg/5 Ml Solution) 5 mg PO Q1H PRN PRN Reason: pain or sob Last Admin: 06/24/24 15:24 Dose: 5 mg Documented By: GEMMA Morphine Sulfate (Morphine Sulfate Oral Serena 10 Mg/5 Ml Solution) 5 mg PO Q4H [facility] Last Admin: 06/26/24 07:22 Dose: 5 mg Documented By: AZRA Ondansetron HCl (Ondansetron Odt 4 Mg Tab.Rapdis) 4 mg TRANSLINGU Q6H PRN PRN Reason: Nausea and Vomiting Sodium Chloride (0.9 % Sodium Chloride Flush 3 Ml Syringe) 3 ml IVFLUSH QSHIFT [facility] Last Admin: 06/26/24 07:15 Dose: Not Given Documented By: AZRA Non-Admin Reason: No Access Assessment and Plan (1) Complication of nephrostomy: Status: Acute (2) Respiratory distress: Status: Acute Plan d4 for 69yo M with bladder CA metastatic to bone + brain on hospice care, presented with dislodged R nephrostomy tube; tube replacement canceled and pt admitted for [facility] hospice metastatic bladder CA - scheduled/prn morphine solution, scheduled/prn lorazepam acute/chronic hypoxic resp failure with large pericardial effusion, small bilateral pleural effusions - supplemental O2 on 10Lpm In my clinical judgment, the patient requires continued inpatient hospitalization for the following reasons: hospice care, hypoxia Total time managing care of this patient today: 35 minutes. Quality Stroke Does the patient have a stroke diagnosis?: No VTE Prior VTE?: No VTE Risk Level:: Medical - moderate - high VTE Device Contraindication: Treatment Not Indicated VTE Drug Contraindication: N/A - Med Ordered
[2024-06-26 11:14] VITALS: RESP 12
--- NOTE | 2024-06-26 12:27 | PC.NURSE ---
Family at bedside,offered to reach out to Dr. Parisi to help make decisions about meds,Dr. Parisi notified
[2024-06-26] MEDS: Scopolamine 1.5 MG PATCH.TD.3 EAR-BEHIND (13:40)
--- NOTE | 2024-06-26 15:17 | MHC.CM.PN ---
PER ROUNDS PT IS NOW GIP
[2024-06-26 16:00] VITALS: RESP 10
[2024-06-26] MEDS: Morphine Sulfate 2 MG/ML CARTRIDGE IVPUSH ×2 (16:41→20:32)
[2024-06-26] MEDS: LORazepam 2 MG/ML VIAL 0.5 MG IVPUSH ×2 (16:41→20:29)
[2024-06-26 16:46] VITALS: RESP 12
[2024-06-27] MEDS: LORazepam 2 MG/ML VIAL 0.5 MG IVPUSH ×3 (00:18→08:26)
[2024-06-27] MEDS: Morphine Sulfate 2 MG/ML CARTRIDGE IVPUSH ×3 (00:21→08:27)
[2024-06-27 04:00] VITALS: RESP 10
[2024-06-27] MEDS: 0.9 % Sodium Chloride Flush 3 ML SYRINGE IVFLUSH (08:27)
--- NOTE | 2024-06-27 11:20 | PM.DDS ---
Discharge Sum: Prov Provider Primary care physician: Serina Melvin MD Discharge Sum: Diag Contributing Factors (1) Complication of nephrostomy: (2) Respiratory distress: Discharge Sum: Summary Date and Time Date of admission: 06/24/24 13:15 Date of : 06/27/24 Time of : 10:15 Summary Details: 69-year-old gentleman with history of metastatic blood cancer with metastasis to bones and brain with bilateral nephrostomy tube presented to [facility] after right nephrostomy tube was dislodged patient was noted to have significant shortness of breath and hypoxia with increased requirement of oxygen from baseline, due to patient's worsening condition right nephrostomy tube was not replaced, patient was admitted under [facility] hospice was treated with morphine, Ativan and scopolamine patch, patient peacefully at 10:15 noted to have, no respiratory rate No pulse Pupils fixed and dilated. Additional Data Attending physician: Nichole Fang MD
== END 2024-06-27 13:32 | disposition expired | DRG 951 ==
LOC: HO.ED 15:41 → HO.EDOVER 17:46 → HO.S3 06-24 02:29
PROVIDERS: Admitting Provider Hospitalist; Emergency Provider Emergency Medicine; PCP Internal Medicine; Visit Provider Hospitalist
DX: Z51.5 Encounter for palliative care (principal); J96.21 Acute and chronic respiratory failure with hypoxia; C79.31 Secondary malignant neoplasm of brain; C79.51 Secondary malignant neoplasm of bone; J98.11 Atelectasis; J90 Pleural effusion, not elsewhere classified; I31.39 Other pericardial effusion (noninflammatory); T83.022A Displacement of nephrostomy catheter, initial encounter; C67.9 Malignant neoplasm of bladder, unspecified; Z79.899 Other long term (current) drug therapy
CPT/HCPCS: 99221; 99285; J1171; J2060; J2270

== ENCOUNTER → 2024-06-23 15:14 | Outpatient (BNV) | payer MEDICARE, SELFPAY | PROVIDERS: Emergency Provider Emergency Medicine; PCP Internal Medicine; Visit Provider Hospitalist | DX: N99.528 Other complication of incontinent external stoma of urinary tract (principal) | CPT/HCPCS: 99223; 99232; 99233; 99239 ==